=== PATIENT | female | born 1935 | race Caucasian/White ===

== ENCOUNTER 2023-06-05 13:54 | Observation (INO) | payer MEDICARE, OTHER, SELFPAY ==
[2023-06-05] VITALS (19 sets, daily range): BP systolic 139–190; BP diastolic 64–84; PULSE 52–86; RESP 16–35; TEMP 36.1–36.9; O2SAT 93–99; BMI 26.4
--- NOTE | 2023-06-05 14:34 | DI.RAD.S_ITS ---
PROCEDURE: XR CHEST 1V INDICATIONS: chest pain TECHNIQUE: One view of the chest was acquired. COMPARISON: [facility], CT, CT KIDNEY URETER BLADDER (KUB), 01/10/2023, 11:20. [facility], CR, XR CHEST 2V, 04/16/2022, 16:05. suggesting [facility], CR, XR CHEST 1V, 12/02/2022, 21:13. FINDINGS: Surgical changes and devices: None. Lungs and pleura: Reticular opacities at the bilateral lung bases suggest mild underlying fibrotic change. There is blunting at the left costophrenic sulcus, as before suggesting small effusion or pleural scar. No new airspace opacities. Mediastinum: Mediastinal contours appear normal. Heart size is large, as before. Bones and chest wall: No suspicious bony lesions. Overlying soft tissues appear unremarkable. IMPRESSION: 1. Questionable left effusion versus pleural scar. 2. No new acute airspace opacities. Dictated by: Joie Sánchez M.D. on 06/05/2023 at 15:13 Approved by: Joie Sánchez M.D. on 06/05/2023 at 15:16
[2023-06-05 14:43] LABS: Add Manual Diff / Slide Review NO; Basophils Absolute Auto 100 /uL (0-100); Basophils Percent Auto 1.2 % (0-2); Eosinophils Absolute Auto 600 /uL (0-450); Eosinophils Percent Auto 5.3 % (2-4); Hemoglobin 12.1 g/dL (12.0-16.0); Lymphocytes Absolute Auto 3900 /uL (1100-4500); Lymphocytes Percent Auto 37.4 % (25-40); Mean Corpuscular HGB Conc 33.6 % (30-36); Mean Corpuscular Hemoglobin 31.9 PG (26-34); Monocytes Absolute Auto 900 /uL (0-900); Monocytes Percent Auto 8.7 % (3-14); Neutrophils Absolute Auto 5000 /uL (1500-7000); Neutrophils Percent Auto 47.4 % (50-75); Platelet Count 310 X10^3/uL (150-400); Red Blood Cell Count 3.79 X10^6/uL (4.0-5.2); Red Cell Distribution Width 13.8 % (11.6-14.8); White Blood Cell Count 10.4 X10^3/uL (4.5-11.0)
[2023-06-05 14:50] LABS: INR 1.2 (0.9-1.3); Prothrombin Time 14.3 SECONDS (9.4-12.5)
[2023-06-05 14:52] LABS: Alanine Aminotransferase 17 IU/L (<35); Albumin 4.3 g/dL (3.5-5.0); Albumin Globulin Ratio 1.2 (1.0-2.8); Alkaline Phosphatase 64 U/L (38-126); Aspartate Aminotransferase 27 IU/L (14-36); BUN Creatinine Ratio 17.7 (6-22); Bilirubin Total 0.4 mg/dL (0.2-1.3); Blood Urea Nitrogen 11 mg/dL (7-17); Calcium 9.5 mg/dL (8.4-10.2); Carbon Dioxide 27 mmol/L (22-32); Chloride 103 mmol/L (98-107); Creatine Kinase 39 U/L (30-135); Estimated Glomerular Filt Rate > 60 mL/min (>60); Globulin 3.5 g/dL (1.7-4.1); Glucose 102 mg/dL (80-110); HEMOLYSIS < 15 (0-50); Lipase 26 U/L (23-300); Magnesium 1.9 mg/dL (1.6-2.3); PTT Partial Thromboplastin Tim 33 SECONDS (25.1-36.5); Sodium 138 mmol/L (137-145); Total Protein 7.8 g/dL (6.3-8.2)
[2023-06-05 15:04] LABS: Troponin I < 0.012 ng/mL (0.01-0.034)
--- NOTE | 2023-06-05 16:41 | ED_ITS ---
HPI - Syncope General Chief Complaint: Syncope Stated Complaint: light headed,possible passed out, dizzy Time Seen by Provider: 06/05/23 16:33 Source: patient Limitations: no limitations History of Present Illness HPI narrative: 87-year-old female with history of paroxysmal atrial fibrillation on Eliquis, recurrent UTI, ROGE, GERD, hypothyroidism. Patient presents with complaint of syncopal or near syncopal episode today. She was seated with friends. She felt a wave dizziness, she thinks that she passed out but states none of her friends noticed any change. She was seated during this episode did not fall out of her seat forward to the table. She states she thinks it may have been a few seconds at the most but did think that she plus some time. She states no one else are noticed anything when it happened. She states she felt a little lightheaded before she left this morning but had not had breakfast. This episode occurred after eating lunch. Patient states no headache, no fevers, no chills, no cold cough or congestion. No chest pain, no shortness of breath. She is felt fine since she has been here at the emergency department. No nausea or vomiting, no diaphoresis. She did not have any bowel or bladder incontinence. No dysuria, urgency or frequency. Patient states no new swelling in extremities. She is on Eliquis for atrial fibrillation, she is currently and a 60 day course of oral antibiotic for recurrent UTI. Note she would hysterectomy and age 34, has not had any other interventions no prior pacers, cardiac stents or abrasions. Allergic to doxycycline and sulfa. No tobacco, alcohol or illicit. She has not reestablished with Cardiology since moving from [place] a year and a half ago. She does have primary care with Dr. Connor. Related Data Home Medications Medication Instructions Recorded Confirmed brimonidine 0.2 %-timolol 0.5 % drp EYE-BOTH 03/06/22 05/21/23 eye drops (Combigan) gabapentin 300 mg capsule 300 mg PO DAILY 03/06/22 05/21/23 hyoscyamine sulfate 0.125 mg 0.25 mg sublingual BID 04/29/23 05/21/23 sublingual tablet levothyroxine 88 mcg tablet 88 mcg PO DAILY 04/29/23 05/21/23 (Synthroid) naloxone 4 mg/actuation nasal spray intranasal 04/29/23 05/21/23 spray (Narcan) oxybutynin chloride 5 mg 5 mg PO DAILY 04/29/23 05/21/23 tablet,extended release 24 hr Previous Rx's Medication Instructions Recorded Disabled parking permit #1 ea 10/09/22 omeprazole 20 mg capsule,delayed 20 mg PO DAILY #90 caps 11/21/22 release methenamine hippurate 1 gram 1 g PO BID #180 tabs 12/19/22 tablet (Hiprex) ospemifene 60 mg tablet (Osphena) 60 mg PO DAILY #90 tabs 12/28/22 estradiol 0.01% (0.1 mg/gram) 1 g vaginal 2XW #42.5 grams 01/30/23 vaginal cream (Estrace) alendronate 70 mg tablet 70 mg PO QWEEK #12 tabs 03/07/23 polyethylene glycol 3350 17 17 g PO BID PRN constip #3,060 03/07/23 gram/dose oral powder (Miralax) grams apixaban 5 mg tablet (Eliquis) 5 mg PO BID #60 tabs 03/11/23 simvastatin 20 mg tablet 20 mg PO DAILY #90 tabs 03/11/23 fluticasone propionate 110 1 puff inhalation BID PRN JUANITA #36 04/15/23 mcg/actuation HFA aerosol inhaler grams (Flovent HFA) albuterol sulfate 2.5 mg/3 mL 2.5 mg (3 mL) inhalation Q6H PRN 05/13/23 (0.083 %) solution for nebulization wheezing #75 mL cefdinir 300 mg capsule 300 mg PO BID #70 caps 05/21/23 Allergies Allergy/AdvReac Type Severity Reaction Status Date / Time doxycycline Allergy Intermediate Swelling Verified 04/29/23 10:55 of Lip/Tongue/Throat Sulfa (Sulfonamide Allergy Mild Hives Verified 04/29/23 10:55 Antibiotics) Review of Systems Review of Systems ROS Unobtainable: All systems reviewed & are unremarkable except as noted in HPI and below Patient History Medical History UTI (urinary tract infection) Chronic prescription opiate use History of recurrent UTI (urinary tract infection) History of recurrent UTI (urinary tract infection) Encounter for initial annual wellness visit (AWV) in Medicare patient Urge incontinence Lower urinary tract symptoms (LUTS) [place]-Walker grade 3 cystocele Postmenopausal atrophic vaginitis Gait instability Polymyalgia rheumatica (~1989) Sleep apnea (~2018) Migraines (~1969) Shoulder pain (~1994) Fracture (~2017) Partial blindness (~2005) Vaginal prolapse History of urinary incontinence (~2014) Fecal incontinence (~2019) GERD (gastroesophageal reflux disease) Osteoporosis (~2017) Fibromyalgia (~1994) Hypothyroidism Benign essential HTN Paroxysmal atrial fibrillation (~2015) Asthma (~2004) Surgical History Anesthesia History of cataract removal with insertion of prosthetic lens (~2005) History of hysterectomy (~1989) Family History Father History of heart disease Hyperlipidemia Mother History of heart disease Hypertension Stroke Brother History of heart disease Hypertension Sister History of heart disease Social History Smoking Status: Never smoker Smoking Status: Never smoker Substance Use Type: does not use Exam Narrative Exam Narrative: GENERAL: Alert and oriented x three, well-appearing elderly female in mild distress. HEENT: Head normocephalic, atraumatic, EOMI, pupils reactive, face symmetric, moist mucous membranes NECK: Supple, full range of motion CARDIOVASCULAR: Regular rate and rhythm without murmurs, rubs or gallops. No JVD. No swelling bilateral lower extremity. RESPIRATORY: Breath sounds equal bilaterally, no wheezes rales or rhonchi. No tachypnea or accessory muscle use ABDOMEN: Soft, nontender. Normoactive bowel sounds all 4 quadrants. No guarding or rebound, rigidity, no mass, no pulsatile mass or bruit. : No CVA tenderness EXTREMITIES: Normal range of motion, no clubbing or edema. Neurovascularly intact NEUROLOGICAL: Cranial nerves II through XII grossly intact. Moving all extremities SKIN: Warm, dry, no petechiae, no rashes or lesions. Initial Vital Signs Initial Vital Signs: Vital Signs Temperature 98.5 F 06/05/23 13:57 Pulse Rate 55 L 06/05/23 13:57 Respiratory Rate 18 06/05/23 13:57 Blood Pressure 152/69 H 06/05/23 13:57 Pulse Oximetry 96 06/05/23 13:57 Oxygen Delivery Method Room Air 06/05/23 13:57 Course Orders Ordered: ED Orders 06/05/23 14:24 EKG-12 Lead Stat 06/05/23 14:30 Complete Blood Count AUTO DIFF Stat Comprehensive Metabolic Panel Stat Lipase Stat Magnesium Stat PTT Partial Thromboplastin Jorge Luis Stat Prothrombin Time INR Stat Troponin & CK Cardiac Panel Stat 06/05/23 14:34 XR chest 1V Stat 06/05/23 17:05 BNP [NT-proBNP (BNP-Adult 18+)] Stat Trop I [Troponin I] Stat 06/05/23 17:09 EKG-12 Lead Stat Discontinued Medications Sodium Chloride (Normal Saline 0.9%) 1,000 mls @ 1,000 mls/hr IV BOLUS ONE Stop: 06/05/23 17:53 Last Admin: 06/05/23 17:15 Dose: 1,000 mls/hr Documented By: TANNA Vital Signs Vital signs: Vital Signs - 8 hr 06/05/23 13:57 06/05/23 14:18 06/05/23 14:30 Temperature 98.5 F Pulse Rate 55 L 56 L 52 L Pulse Rate [Orthostatic Lying] Pulse Rate [Orthostatic Sitting] Pulse Rate [Orthostatic Standing] Respiratory Rate 18 23 Blood Pressure 152/69 H Blood Pressure [Orthostatic Lying] Blood Pressure [Orthostatic Sitting] Blood Pressure [Orthostatic Standing] Pulse Oximetry 96 97 99 Oxygen Delivery Method Room Air Room Air 06/05/23 14:30 06/05/23 15:00 06/05/23 15:00 Temperature Pulse Rate 75 Pulse Rate [Orthostatic Lying] Pulse Rate [Orthostatic Sitting] Pulse Rate [Orthostatic Standing] Respiratory Rate 23 Blood Pressure 139/64 158/75 H Blood Pressure [Orthostatic Lying] Blood Pressure [Orthostatic Sitting] Blood Pressure [Orthostatic Standing] Pulse Oximetry 97 Oxygen Delivery Method Room Air 06/05/23 15:30 06/05/23 15:30 06/05/23 16:00 Temperature Pulse Rate 80 Pulse Rate [Orthostatic Lying] Pulse Rate [Orthostatic Sitting] Pulse Rate [Orthostatic Standing] Respiratory Rate 20 Blood Pressure 157/69 H 161/73 H Blood Pressure [Orthostatic Lying] Blood Pressure [Orthostatic Sitting] Blood Pressure [Orthostatic Standing] Pulse Oximetry 96 Oxygen Delivery Method 06/05/23 16:00 06/05/23 16:30 06/05/23 16:31 Temperature Pulse Rate 78 80 79 Pulse Rate [Orthostatic Lying] Pulse Rate [Orthostatic Sitting] Pulse Rate [Orthostatic Standing] Respiratory Rate 18 23 24 Blood Pressure Blood Pressure [Orthostatic Lying] Blood Pressure [Orthostatic Sitting] Blood Pressure [Orthostatic Standing] Pulse Oximetry 95 97 98 Oxygen Delivery Method Room Air 06/05/23 16:31 06/05/23 16:59 06/05/23 16:59 Temperature Pulse Rate 81 Pulse Rate [Orthostatic Lying] Pulse Rate [Orthostatic Sitting] Pulse Rate [Orthostatic Standing] Respiratory Rate 28 H Blood Pressure 182/79 H 189/83 H Blood Pressure [Orthostatic Lying] Blood Pressure [Orthostatic Sitting] Blood Pressure [Orthostatic Standing] Pulse Oximetry 96 Oxygen Delivery Method 06/05/23 17:00 06/05/23 17:01 06/05/23 17:01 Temperature Pulse Rate 85 82 Pulse Rate [Orthostatic Lying] Pulse Rate [Orthostatic Sitting] Pulse Rate [Orthostatic Standing] Respiratory Rate 35 H 21 Blood Pressure 178/84 H Blood Pressure [Orthostatic Lying] Blood Pressure [Orthostatic Sitting] Blood Pressure [Orthostatic Standing] Pulse Oximetry 95 Oxygen Delivery Method Room Air 06/05/23 17:02 06/05/23 17:02 06/05/23 17:05 Temperature Pulse Rate 83 Pulse Rate [Orthostatic Lying] 82 Pulse Rate [Orthostatic Sitting] 85 Pulse Rate [Orthostatic Standing] 86 Respiratory Rate 29 H Blood Pressure 190/84 H Blood Pressure [Orthostatic Lying] 189/83 H Blood Pressure [Orthostatic Sitting] 178/84 H Blood Pressure [Orthostatic Standing] 190/84 H Pulse Oximetry Oxygen Delivery Method 06/05/23 17:30 06/05/23 17:30 Temperature Pulse Rate 82 Pulse Rate [Orthostatic Lying] Pulse Rate [Orthostatic Sitting] Pulse Rate [Orthostatic Standing] Respiratory Rate 20 Blood Pressure 169/77 H Blood Pressure [Orthostatic Lying] Blood Pressure [Orthostatic Sitting] Blood Pressure [Orthostatic Standing] Pulse Oximetry 96 Oxygen Delivery Method Room Air MDM - Syncope Lab Data 06/05/23 14:30 06/05/23 14:30 Labs: Lab Results 06/05/23 06/05/23 Range/Units 14:30 17:05 WBC 10.4 (4.5-11.0) X10^3/uL RBC 3.79 L (4.0-5.2) X10^6/uL Hgb 12.1 (12.0-16.0) g/dL Hct 36.0 (36-46) % MCV 95.0 (80-100) fL MCH 31.9 (26-34) PG MCHC 33.6 (30-36) % RDW 13.8 (11.6-14.8) % Plt Count 310 (150-400) X10^3/uL Neut % (Auto) 47.4 L (50-75) % Lymph % (Auto) 37.4 (25-40) % [place] % (Auto) 8.7 (3-14) % Eos % (Auto) 5.3 H (2-4) % Baso % (Auto) 1.2 (0-2) % Neut # (Auto) 5000 (1171-2936) /uL Lymph # (Auto) 3900 (8691-9763) /uL Dodge # (Auto) 900 (0-900) /uL Eos # (Auto) 600 H (0-450) /uL Baso # (Auto) 100 (0-100) /uL PT 14.3 H (9.4-12.5) SECONDS INR 1.2 (0.9-1.3) APTT 33 (25.1-36.5) SECONDS Sodium 138 (137-145) mmol/L Potassium 4.0 (3.4-5.1) mmol/L Chloride 103 (98-107) mmol/L Carbon Dioxide 27 (22-32) mmol/L BUN 11 (7-17) mg/dL Creatinine 0.62 (0.52-1.04) mg/dL Estimated GFR > 60 (>60) mL/min BUN/Creatinine Ratio 17.7 (6-22) Glucose 102 (80-110) mg/dL Calcium 9.5 (8.4-10.2) mg/dL Magnesium 1.9 (1.6-2.3) mg/dL Total Bilirubin 0.4 (0.2-1.3) mg/dL AST 27 (14-36) IU/L ALT 17 (<35) IU/L Alkaline Phosphatase 64 (38-126) U/L Total Creatine Kinase 39 (30-135) U/L Troponin I < 0.012 < 0.012 (0.01-0.034) ng/mL NT-Pro-B Natriuret Pep 2110 H (<450) pg/mL Total Protein 7.8 (6.3-8.2) g/dL Albumin 4.3 (3.5-5.0) g/dL Globulin 3.5 (1.7-4.1) g/dL Albumin/Globulin Ratio 1.2 (1.0-2.8) Lipase 26 (23-300) U/L Urine Dip Bedside Urine Glucose Negative Bedside Urine Bilirubin - Negative Bedside Urine Ketone - Negative Urine Specific [place] 1.015 Bedside Urine Occult Blood - Negative Bedside Urine pH 6.5 Bedside Urine Protein - Negative Bedside Urine Urobilinogen - Negative Bedside Urine Nitrite - Negative Bedside Urine Leukocytes - Negative Esterase Imaging Data Chest x-ray: Radiologist's Impression: [address] [address] XRay Report Signed Patient: Natalie Singh MR#: [id number] : 1935 Acct:[id number] Age/Sex: 87 / F Date of Service: 06/05/23 Loc: ED Accession Number: [id number] Procedure: XR chest 1V Ordering Provider: Paulina Barcenas D.O. PROCEDURE: XR CHEST 1V INDICATIONS: chest pain TECHNIQUE: One view of the chest was acquired. COMPARISON: [facility], CT, CT KIDNEY URETER BLADDER (KUB), 01/10/2023, 11:20. [facility], CR, XR CHEST 2V, 04/16/2022, 16:05. suggesting [facility], CR, XR CHEST 1V, 12/02/2022, 21:13. FINDINGS: Surgical changes and devices: None. Lungs and pleura: Reticular opacities at the bilateral lung bases suggest mild underlying fibrotic change. There is blunting at the left costophrenic sulcus, as before suggesting small effusion or pleural scar. No new airspace opacities. Mediastinum: Mediastinal contours appear normal. Heart size is large, as before. Bones and chest wall: No suspicious bony lesions. Overlying soft tissues appear unremarkable. IMPRESSION: 1. Questionable left effusion versus pleural scar. 2. No new acute airspace opacities. Dictated by: Joie Sánchez M.D. on 06/05/2023 at 15:13 Approved by: Joie Sánchez M.D. on 06/05/2023 at 15:16 ECG Data Attestation: I personally reviewed and interpreted this ECG as follows: Prior ECG tracings: available for review Interpretation: Sinus bradycardia rate of 55 VA 142, QRS of 106 QTC of 463. No acute ST elevation patient's T-waves appear inverted in lead 3, do not appreciate consistent changes throughout AVF appears present lead 2. Patient appears to have some flattened T-wave/depression in V4 5. Patient has prior from 12/02/2022 these changes do appear to be new. MDM Narrative Medical decision making narrative: Pleasant 87-year-old female who describes very brief near syncopal or syncopal episode but no loss of tone, no changes consistent with seizure activity. No one around her noticed any change. Patient states she is felt normal since then but has been resting comfortably in the room. She is hypertensive here in the department but otherwise appropriate vitals. Hemoglobin is 12, hematocrit was 36, hemoglobin is 10.4 with platelets of 310. INR is 1.2 renal function electrolytes are appropriate with a creatinine 0.62, glucose of 102, sodium 138 and potassium of 4, LFTs are negative troponins negative. Chest x-ray shows questionable left effusion versus pleural scar no new acute changes. EKG showed new change from November of 2022, patient does not have any chest pain, no shortness of breath no diaphoresis or other changes consistent with a cardiac equivalent did have this episode while seated. Troponin is negative. BNP is 2110. Repeat EKG shows normalization to prior on 12/02/2022 with resolution of T-wave inversion in 2 and 3 Patient is appropriately anticoagulated on Eliquis so held off on D-dimer or CTA. Negative orthostatics, felt dizzy, given 1 L NS. She felt improved on ambulation to bathroom after 500mL. Discussed with Dr. Duarte, would like to keep for observation to likely near syncopal episode although patient has been more hypertensive, no other acute neurologic changes no seizure-like activity appreciated but did not has EKG change. Plan for repeat trope echo and further workup as needed Dr. Duarte kindly accepts. Discharge Plan Departure Patient Disposition: Admitted as Observation Clinical Impression: Near syncope, ST segment changes on electrocardiogram Admit Date/Time: 06/05/23 18:07
[2023-06-05] MEDS: SODIUM CHLORIDE 0.9% 1,000 ML 1000 ML IV (17:15)
[2023-06-05 17:34] LABS: NT-proBNP (BNP-Adult 18+) 2110 pg/mL (<450)
[2023-06-05 17:37] LABS: Troponin I < 0.012 ng/mL (0.01-0.034)
--- NOTE | 2023-06-05 21:07 | DI.CT.S_ITS ---
PROCEDURE: CT HEAD/BRAIN WO CON INDICATIONS: syncope TECHNIQUE: Noncontrast 4.5 mm thick angled axial sections acquired from the foramen magnum to the vertex, with coronal and sagittal reformats. For radiation dose reduction, the following was used: automated exposure control, adjustment of mA and/or kV according to patient size. COMPARISON: [facility], CT, CT HEAD/BRAIN WO CON, 12/02/2022, 22:01. FINDINGS: Image quality: Diagnostic CSF spaces: Basal cisterns are patent. Lateral ventricles are symmetric. Volume: Vascular calcifications. Periventricular white matter disease is commonly seen with chronic microangiopathy. Volume loss is present. These findings are [id number] Brain: No intracranial hemorrhage. Flynn-white differentiation is grossly maintained. Craniofacial structures: No significant opacification of the paranasal sinuses. IMPRESSION: No acute intracranial abnormality. If there is high concern for parenchymal pathology, consider further evaluation with MRI. Dictated by: Dung Talbert M.D. on 06/05/2023 at 22:02 Approved by: Dung Talbert M.D. on 06/05/2023 at 22:04
--- NOTE | 2023-06-05 21:14 | P.HP_ITS ---
History of Present Illness History of Present Illness Chief complaint: light headed,possible passed out, dizzy Narrative: 87 years old female with a past medical history of hypertension, paroxysmal atrial fibrillation, urinary tract infection recurrent, obstructive sleep apnea, GERD, hypothyroidism and multiple other medical issues presented to the emergency room for near syncope/syncopal events. She was with her friends and felt a wave of dizziness and thought she may have passed out but did not fall out of her seat. It may have been brief for a few seconds. Denies any headache blurred vision diplopia or any focal neurodeficits per denies any chest pain or shortness of breath. Did feel lightheaded earlier in the morning and had skipped breakfast. Denies any cough wheezing shortness of breath or upper respiratory symptoms. Denies any bowel movement or bladder issues. In the ED, was noted to be bradycardic with a heart rate in the 50s. Labs were fairly unremarkable except for BNP at 2110. Urine analysis is negative for leukocyte esterase and nitrites. Chest x-ray shows possible effusion versus pleural scar on the left side. EKG shows a sinus bradycardia with the T wave inversion in V4?V5. Patient was admitted for further evaluation [facility] Medical History UTI (urinary tract infection) Chronic prescription opiate use History of recurrent UTI (urinary tract infection) History of recurrent UTI (urinary tract infection) Encounter for initial annual wellness visit (AWV) in Medicare patient Urge incontinence Lower urinary tract symptoms (LUTS) [place]-Walker grade 3 cystocele Postmenopausal atrophic vaginitis Gait instability Polymyalgia rheumatica (~1989) Sleep apnea (~2018) Migraines (~1969) Shoulder pain (~1994) Fracture (~2017) Partial blindness (~2005) Vaginal prolapse History of urinary incontinence (~2014) Fecal incontinence (~2019) GERD (gastroesophageal reflux disease) Osteoporosis (~2017) Fibromyalgia (~1994) Hypothyroidism Benign essential HTN Paroxysmal atrial fibrillation (~2015) Asthma (~2005) Surgical History Anesthesia History of cataract removal with insertion of prosthetic lens (~2005) History of hysterectomy (~1989) Family History Father History of heart disease Hyperlipidemia Mother History of heart disease Hypertension Stroke Brother History of heart disease Hypertension Sister History of heart disease Social History household members: significant other Smoking Status: Never smoker Meds Home Medications and Allergies Home Medications Medication Instructions Recorded Confirmed Type brimonidine 0.2 %-timolol 0.5 % 1 drp EYE-BOTH BID 03/06/22 06/05/23 History eye drops (Combigan) gabapentin 300 mg capsule 300 mg PO DAILY 03/06/22 06/05/23 History Disabled parking permit #1 ea 10/09/22 04/29/23 Rx omeprazole 20 mg capsule,delayed 20 mg PO DAILY #90 caps 11/21/22 06/05/23 Rx release estradiol 0.01% (0.1 mg/gram) 1 g vaginal 2XW #42.5 grams 01/30/23 06/05/23 Rx vaginal cream (Estrace) alendronate 70 mg tablet 70 mg PO QWEEK #12 tabs 03/07/23 06/05/23 Rx polyethylene glycol 3350 17 17 g PO BID PRN constip #3,060 03/07/23 06/05/23 Rx gram/dose oral powder (Miralax) grams apixaban 5 mg tablet (Eliquis) 5 mg PO BID #60 tabs 03/11/23 06/05/23 Rx simvastatin 20 mg tablet 20 mg PO DAILY #90 tabs 03/11/23 06/05/23 Rx fluticasone propionate 110 1 puff inhalation BID PRN JUANITA #36 04/15/23 06/05/23 Rx mcg/actuation HFA aerosol inhaler grams (Flovent HFA) hyoscyamine sulfate 0.125 mg 0.25 mg sublingual BID 04/29/23 06/05/23 History sublingual tablet levothyroxine 88 mcg tablet 88 mcg PO DAILY 04/29/23 06/05/23 History (Synthroid) naloxone 4 mg/actuation nasal 1 spray intranasal NOW 04/29/23 06/05/23 History spray (Narcan) oxybutynin chloride 5 mg 5 mg PO DAILY 04/29/23 06/05/23 History tablet,extended release 24 hr albuterol sulfate 2.5 mg/3 mL 2.5 mg (3 mL) inhalation Q6H PRN 05/13/23 06/05/23 Rx (0.083 %) solution for nebulization wheezing #75 mL cefdinir 300 mg capsule 300 mg PO BID #70 caps 05/21/23 06/05/23 Rx hydrocodone 5 mg-acetaminophen 325 1 tab PO Q8H PRN cough 06/05/23 06/05/23 History mg tablet Allergies Allergy/AdvReac Type Severity Reaction Status Date / Time doxycycline Allergy Intermediate Swelling Verified 04/29/23 10:55 of Lip/Tongue/Throat Sulfa (Sulfonamide Allergy Mild Hives Verified 04/29/23 10:55 Antibiotics) Review of Systems Review of Systems Narrative: 12 point review of systems negative unless otherwise stated in the history of present illness Exam Vital Signs (past 8 hours): - 06/05/23 13:57 06/05/23 14:18 06/05/23 14:30 Temperature 98.5 F Pulse Rate 55 L 56 L 52 L Pulse Rate [Orthostatic Lying] Pulse Rate [Orthostatic Sitting] Pulse Rate [Orthostatic Standing] Respiratory Rate 18 23 Blood Pressure 152/69 H Blood Pressure [Orthostatic Lying] Blood Pressure [Orthostatic Sitting] Blood Pressure [Orthostatic Standing] Pulse Oximetry 96 97 99 Oxygen Delivery Method Room Air Room Air Oxygen Flow Rate 06/05/23 14:30 06/05/23 15:00 06/05/23 15:00 Temperature Pulse Rate 75 Pulse Rate [Orthostatic Lying] Pulse Rate [Orthostatic Sitting] Pulse Rate [Orthostatic Standing] Respiratory Rate 23 Blood Pressure 139/64 158/75 H Blood Pressure [Orthostatic Lying] Blood Pressure [Orthostatic Sitting] Blood Pressure [Orthostatic Standing] Pulse Oximetry 97 Oxygen Delivery Method Room Air Oxygen Flow Rate 06/05/23 15:30 06/05/23 15:30 06/05/23 16:00 Temperature Pulse Rate 80 Pulse Rate [Orthostatic Lying] Pulse Rate [Orthostatic Sitting] Pulse Rate [Orthostatic Standing] Respiratory Rate 20 Blood Pressure 157/69 H 161/73 H Blood Pressure [Orthostatic Lying] Blood Pressure [Orthostatic Sitting] Blood Pressure [Orthostatic Standing] Pulse Oximetry 96 Oxygen Delivery Method Oxygen Flow Rate 06/05/23 16:00 06/05/23 16:30 06/05/23 16:31 Temperature Pulse Rate 78 80 79 Pulse Rate [Orthostatic Lying] Pulse Rate [Orthostatic Sitting] Pulse Rate [Orthostatic Standing] Respiratory Rate 18 23 24 Blood Pressure Blood Pressure [Orthostatic Lying] Blood Pressure [Orthostatic Sitting] Blood Pressure [Orthostatic Standing] Pulse Oximetry 95 97 98 Oxygen Delivery Method Room Air Oxygen Flow Rate 06/05/23 16:31 06/05/23 16:59 06/05/23 16:59 Temperature Pulse Rate 81 Pulse Rate [Orthostatic Lying] Pulse Rate [Orthostatic Sitting] Pulse Rate [Orthostatic Standing] Respiratory Rate 28 H Blood Pressure 182/79 H 189/83 H Blood Pressure [Orthostatic Lying] Blood Pressure [Orthostatic Sitting] Blood Pressure [Orthostatic Standing] Pulse Oximetry 96 Oxygen Delivery Method Oxygen Flow Rate 06/05/23 17:00 06/05/23 17:01 06/05/23 17:01 Temperature Pulse Rate 85 82 Pulse Rate [Orthostatic Lying] Pulse Rate [Orthostatic Sitting] Pulse Rate [Orthostatic Standing] Respiratory Rate 35 H 21 Blood Pressure 178/84 H Blood Pressure [Orthostatic Lying] Blood Pressure [Orthostatic Sitting] Blood Pressure [Orthostatic Standing] Pulse Oximetry 95 Oxygen Delivery Method Room Air Oxygen Flow Rate 06/05/23 17:02 06/05/23 17:02 06/05/23 17:05 Temperature Pulse Rate 83 Pulse Rate [Orthostatic Lying] 82 Pulse Rate [Orthostatic Sitting] 85 Pulse Rate [Orthostatic Standing] 86 Respiratory Rate 29 H Blood Pressure 190/84 H Blood Pressure [Orthostatic Lying] 189/83 H Blood Pressure [Orthostatic Sitting] 178/84 H Blood Pressure [Orthostatic Standing] 190/84 H Pulse Oximetry Oxygen Delivery Method Oxygen Flow Rate 06/05/23 17:30 06/05/23 17:30 06/05/23 18:00 Temperature Pulse Rate 82 Pulse Rate [Orthostatic Lying] Pulse Rate [Orthostatic Sitting] Pulse Rate [Orthostatic Standing] Respiratory Rate 20 Blood Pressure 169/77 H 187/84 H Blood Pressure [Orthostatic Lying] Blood Pressure [Orthostatic Sitting] Blood Pressure [Orthostatic Standing] Pulse Oximetry 96 Oxygen Delivery Method Room Air Oxygen Flow Rate 06/05/23 18:00 06/05/23 18:30 06/05/23 18:30 Temperature Pulse Rate 83 81 Pulse Rate [Orthostatic Lying] Pulse Rate [Orthostatic Sitting] Pulse Rate [Orthostatic Standing] Respiratory Rate 24 23 Blood Pressure 161/68 H Blood Pressure [Orthostatic Lying] Blood Pressure [Orthostatic Sitting] Blood Pressure [Orthostatic Standing] Pulse Oximetry 98 93 Oxygen Delivery Method Oxygen Flow Rate 06/05/23 19:04 06/05/23 20:00 06/05/23 20:56 Temperature 96.9 F L 96.9 F L 96.9 F L Pulse Rate 83 83 83 Pulse Rate [Orthostatic Lying] Pulse Rate [Orthostatic Sitting] Pulse Rate [Orthostatic Standing] Respiratory Rate 20 16 16 Blood Pressure 163/66 H 163/66 H 163/66 H Blood Pressure [Orthostatic Lying] Blood Pressure [Orthostatic Sitting] Blood Pressure [Orthostatic Standing] Pulse Oximetry 97 97 97 Oxygen Delivery Method Oxygen Flow Rate 0 0 Oxygen Delivery Method Room Air Oxygen Flow Rate 0 Narrative Exam Narrative: Evaluated with the help of video communication device Patient is awake alert and able to give a good history. No acute distress. No JVD noted Objective Labs 06/05/23 14:30 06/05/23 14:30 Labs: Laboratory Results - last 24 hr 06/05/23 06/05/23 14:30 17:05 WBC 10.4 RBC 3.79 L Hgb 12.1 Hct 36.0 MCV 95.0 MCH 31.9 MCHC 33.6 RDW 13.8 Plt Count 310 Neut % (Auto) 47.4 L Lymph % (Auto) 37.4 [place] % (Auto) 8.7 Eos % (Auto) 5.3 H Baso % (Auto) 1.2 Neut # (Auto) 5000 Lymph # (Auto) 3900 [place] # (Auto) 900 Eos # (Auto) 600 H Baso # (Auto) 100 PT 14.3 H INR 1.2 APTT 33 Sodium 138 Potassium 4.0 Chloride 103 Carbon Dioxide 27 BUN 11 Creatinine 0.62 Estimated GFR > 60 BUN/Creatinine Ratio 17.7 Glucose 102 Calcium 9.5 Magnesium 1.9 Total Bilirubin 0.4 AST 27 ALT 17 Alkaline Phosphatase 64 Total Creatine Kinase 39 Troponin I < 0.012 < 0.012 NT-Pro-B Natriuret Pep 2110 H Total Protein 7.8 Albumin 4.3 Globulin 3.5 Albumin/Globulin Ratio 1.2 Lipase 26 Assessment & Plan Assessment & Plan narrative: 87 years old female with a past medical history of hypertension, paroxysmal atrial fibrillation, urinary tract infection recurrent, obstructive sleep apnea, GERD, hypothyroidism and multiple other medical issues presented to the emergency room for near syncope/syncopal events. She was with her friends and felt a wave of dizziness and thought she may have passed out but did not fall out of her seat. It may have been brief for a few seconds. Denies any headache blurred vision diplopia or any focal neurodeficits per denies any chest pain or shortness of breath. Did feel lightheaded earlier in the morning and had skipped breakfast. Denies any cough wheezing shortness of breath or upper respiratory symptoms. Denies any bowel movement or bladder issues. In the ED, was noted to be bradycardic with a heart rate in the 50s. Labs were fairly unremarkable except for BNP at 2110. Urine analysis is negative for leukocyte esterase and nitrites. Chest x-ray shows possible effusion versus pleural scar on the left side. EKG shows a sinus bradycardia with the T wave inversion in V4?V5. Patient was admitted for further evaluation 1. Syncope/near syncope in a patient with a history of atrial fibrillation/cardiac arrhythmia. Monitoring telemetry and follow-up with an echocardiogram/follow-up with a CT brain without contrast. Watch for any cardiac arrhythmias that could contribute. Monitor for any orthostatic blood pressures and reversible factors including any electrolyte imbalance/infections. Did receive 1 L normal saline bolus in the emergency room and was not orthostatic. Hold off on further IV fluids given the elevated BNP with concerns for cardiomyopathy 2. Paroxysmal atrial fibrillation. Currently rate controlled and on anticoagulation with Eliquis 3. Polymyalgia rheumatica/fibromyalgia chronic pain resume the home medications 4. Muscle spasm resume the home medications including muscle relaxers 5. DVT prophylaxis will be with Eliquis 6. Urinary tract infection chronic and currently on chronic suppressive antibiotics Goals of care reviewed with the patient and she has requested full code. Patient will be admitted under observation status Patient was evaluated with the help of a video communication device. Location of the provider is [facility] Time Spent With Patient Time with patient: less than 30 minutes
[2023-06-05] MEDS: TIMOLOL 0.5% OPHTH 1 DROPS EYE-BOTH (22:07)
[2023-06-05] MEDS: TEMAZEPAM 15 MG CAPSULE 7.5 MG PO (22:08)
[2023-06-05] MEDS: ACETAMINOPHEN 325 MG TABLET 650 MG PO (22:08)
[2023-06-05] MEDS: OXYCODONE IR 5 MG TABLET PO (22:09)
[2023-06-06 00:56] VITALS: BP 124/61; PULSE 65; RESP 16; TEMP 37; O2SAT 96
[2023-06-06 04:00] VITALS: BP 168/62; PULSE 16; RESP 16; TEMP 36.2; O2SAT 96
[2023-06-06 06:13] LABS: Add Manual Diff / Slide Review NO; Basophils Absolute Auto 100 /uL (0-100); Basophils Percent Auto 1.1 % (0-2); Eosinophils Absolute Auto 400 /uL (0-450); Eosinophils Percent Auto 5.3 % (2-4); Hematocrit 33.4 % (36-46); Hemoglobin 11.2 g/dL (12.0-16.0); Lymphocytes Absolute Auto 3400 /uL (1100-4500); Mean Corpuscular HGB Conc 33.6 % (30-36); Mean Corpuscular Hemoglobin 31.8 PG (26-34); Mean Corpuscular Volume 94.7 fL (80-100); Monocytes Absolute Auto 800 /uL (0-900); Neutrophils Absolute Auto 3700 /uL (1500-7000); Neutrophils Percent Auto 43.6 % (50-75); Platelet Count 243 X10^3/uL (150-400); Red Blood Cell Count 3.53 X10^6/uL (4.0-5.2); Red Cell Distribution Width 13.9 % (11.6-14.8); White Blood Cell Count 8.4 X10^3/uL (4.5-11.0)
[2023-06-06 06:38] LABS: Alanine Aminotransferase 15 IU/L (<35); Albumin 3.7 g/dL (3.5-5.0); Albumin Globulin Ratio 1.2 (1.0-2.8); Alkaline Phosphatase 53 U/L (38-126); Aspartate Aminotransferase 27 IU/L (14-36); BUN Creatinine Ratio 19.6 (6-22); Bilirubin Total 0.5 mg/dL (0.2-1.3); Blood Urea Nitrogen 10 mg/dL (7-17); Calcium 8.9 mg/dL (8.4-10.2); Carbon Dioxide 28 mmol/L (22-32); Chloride 105 mmol/L (98-107); Estimated Glomerular Filt Rate > 60 mL/min (>60); Globulin 3.2 g/dL (1.7-4.1); Glucose 86 mg/dL (80-110); HEMOLYSIS < 15 (0-50); Magnesium 1.9 mg/dL (1.6-2.3); Potassium 3.5 mmol/L (3.4-5.1); Sodium 138 mmol/L (137-145); Total Protein 6.9 g/dL (6.3-8.2)
[2023-06-06 06:46] LABS: NT-proBNP (BNP-Adult 18+) 2630 pg/mL (<450)
[2023-06-06] MEDS: PANTOPRAZOLE DR 20 MG TABLET PO (07:07)
[2023-06-06 07:58] LABS: TSH w/ Reflex to FT4 0.64 uIU/mL (0.47-4.68)
[2023-06-06 08:00] VITALS: BP 166/67; PULSE 61; RESP 16; TEMP 36.3; O2SAT 96
[2023-06-06] MEDS: APIXABAN 5 MG TABLET PO (08:30)
[2023-06-06] MEDS: LEVOTHYROXINE 88 MCG TABLET PO (08:30)
[2023-06-06] MEDS: GABAPENTIN 300 MG CAPSULE PO (08:31)
[2023-06-06] MEDS: OXYCODONE IR 5 MG TABLET PO ×2 (08:31→15:48)
[2023-06-06] MEDS: POTASSIUM CHLORIDE 20 MEQ TAB 40 MEQ PO (10:20)
--- NOTE | 2023-06-06 11:01 | PC.NURSE ---
Informed pt at 10:30 AM that she'll be getting an echo. Echo is currently in the pt's room. Pt denies any dizziness, weakness, loss of time and/or memory.
[2023-06-06 12:00] VITALS: BP 156/60; PULSE 63; RESP 16; TEMP 36.7; O2SAT 95
--- NOTE | 2023-06-06 14:48 | CM.DANOTE ---
Initial DCP Assessment Note Pt is a 87 yo female, resident of [place], presents after near syncopal/syncopal event. According to conversation in multidisciplinary rounds, echo has been ordered and patient is likely to discharge home after, depending on findings. PCP: Wilmar Connor Payer: [facility] Reviewed chart, met w/patient and her SO Dung, introduced self and role. Patient lives w/SO, patient independent in all aspects. Patient anticipates returning home w/Dung to assist as needed, denies needs from this [employer]. No barriers identified at this time to patient's safe discharge home w/family to assist; close outpatient f/u recommended. CM team will plan to follow closely in case any DC needs or concerns arise. CLAUDETTE Chambers Discharge Planning/Care Management Advanced directive, confirm from FAMILY Start: 06/05/23 19:35 Freq: Q24H Status: Active Protocol: Document 06/06/23 10:40 MS (Rec: 06/06/23 10:40 MS [id number]) Advance Directive, confirm on record Time 10:40 Person contacted Natalie Copy received No CM Discharge Assessment Start: 06/06/23 14:44 Freq: Status: Active Protocol: Document 06/06/23 14:44 JODI (Rec: 06/06/23 14:48 [id number]) Discharge Planning Assessment Assigned Advertising Editor CLAUDETTE Rodriguez DPOA/Assigned Designee Name Dung Byrne DEMETRIS Contact Information [phone] Advance Directives? Yes: POLST on file Advance Directives on File No History Provided By Patient,Significant Other Prior Living Arrangements House Household Members significant other Type of transportation used prior to Drives own vehicle admit Independent with ADL's Yes: SO assists as needed Is patient alert and oriented? Yes Needs Assistance With Home Chores / Shopping Barriers to Discharge No Discharge Plan Home Transportation Arrangement SO Dung
--- NOTE | 2023-06-06 15:26 | P.DS_ITS ---
History of Present Illness History of Present Illness Chief complaint: light headed,possible passed out, dizzy Narrative: 87 years old female with a past medical history of hypertension, paroxysmal atrial fibrillation, urinary tract infection recurrent, obstructive sleep apnea, GERD, hypothyroidism and multiple other medical issues presented to the emergency room for near syncope/syncopal events. She was with her friends and felt a wave of dizziness and thought she may have passed out but did not fall out of her seat. It may have been brief for a few seconds. Denies any headache blurred vision diplopia or any focal neurodeficits per denies any chest pain or shortness of breath. Did feel lightheaded earlier in the morning and had skipped breakfast. Denies any cough wheezing shortness of breath or upper respiratory symptoms. Denies any bowel movement or bladder issues. In the ED, was noted to be bradycardic with a heart rate in the 50s. Labs were fairly unremarkable except for BNP at 2110. Urine analysis is negative for leukocyte esterase and nitrites. Chest x-ray shows possible effusion versus pleural scar on the left side. EKG shows a sinus bradycardia with the T wave inversion in V4?V5. Patient was admitted for further evaluation Discharge Providers Provider Date of admission: 06/05/23 18:07 Discharge Date: 06/06/23 Primary care physician: Wilmar Connor DO Discharge provider: Jimenez Duarte DO Summary Hospital Course Discharge Diagnosis: 1. Syncope/near syncope in a patient with a history of atrial fibrillation/cardiac arrhythmia. Monitoring telemetry and follow-up with an echocardiogram/follow-up with a CT brain without contrast. Watch for any cardiac arrhythmias that could contribute. Monitor for any orthostatic blood pressures and reversible factors including any electrolyte imbalance/infections. Did receive 1 L normal saline bolus in the emergency room and was not orthostatic. -echo with EF 55-60%, mild-mod MR, mod AR and mod-severe TR, with RVSP 64 indicating pulm HTN -patient to discuss pulm HTN with PCP, but she denies significant SOB -CT head negative -trops negative 2. Paroxysmal atrial fibrillation. Currently rate controlled and on anticoagulation with Eliquis 3. Polymyalgia rheumatica/fibromyalgia chronic pain resume the home medications 4. Muscle spasm resume the home medications including muscle relaxers 5. DVT prophylaxis will be with Eliquis 6. Urinary tract infection chronic and currently on chronic suppressive antibiotics Hospital Course: Admitted for presyncope. All workup reassuring and patient remained stable overnight. Echo only showed pulm HTN and mod-severe TR. Trops negative, CT head negative and no events on tele. Orthostatics negative. She will discuss her pulm HTN with her PCP and whether to see cardiology about it or not given her age and lack of symptoms. Exam Vital Signs (past 8 hours): - 06/06/23 08:00 06/06/23 12:00 Temperature 97.3 F L 98.1 F Pulse Rate 61 63 Respiratory Rate 16 16 Blood Pressure 166/67 H 156/60 H Pulse Oximetry 96 95 Oxygen Delivery Method Room Air Oxygen Flow Rate 0 Narrative Exam Narrative: GEN: no acute distress, elderly woman HEENT: moist mucous membranes, PERRL NECK: trachea midline, no JVD CV: regular rate and rhythm, no murmurs PULM: clear bilaterally ABD: soft, nontender, nondistended, no organomegaly EXT: warm and well perfused with no edema NEURO: awake, alert, oriented, no focal deficits Objective Labs 06/06/23 05:45 06/06/23 05:45 Labs: Laboratory Results - last 24 hr 06/05/23 06/06/23 17:05 05:45 WBC 8.4 RBC 3.53 L Hgb 11.2 L Hct 33.4 L MCV 94.7 MCH 31.8 MCHC 33.6 RDW 13.9 Plt Count 243 Neut % (Auto) 43.6 L Lymph % (Auto) 40.0 [place] % (Auto) 10.0 Eos % (Auto) 5.3 H Baso % (Auto) 1.1 Neut # (Auto) 3700 Lymph # (Auto) 3400 [place] # (Auto) 800 Eos # (Auto) 400 Baso # (Auto) 100 Sodium 138 Potassium 3.5 Chloride 105 Carbon Dioxide 28 BUN 10 Creatinine 0.51 L Estimated GFR > 60 BUN/Creatinine Ratio 19.6 Glucose 86 Calcium 8.9 Magnesium 1.9 Total Bilirubin 0.5 AST 27 ALT 15 Alkaline Phosphatase 53 Troponin I < 0.012 NT-Pro-B Natriuret Pep 2110 H 2630 H Total Protein 6.9 Albumin 3.7 Globulin 3.2 Albumin/Globulin Ratio 1.2 TSH 0.64 PFSH Medical History UTI (urinary tract infection) Chronic prescription opiate use History of recurrent UTI (urinary tract infection) History of recurrent UTI (urinary tract infection) Encounter for initial annual wellness visit (AWV) in Medicare patient Urge incontinence Lower urinary tract symptoms (LUTS) [place]-Walker grade 3 cystocele Postmenopausal atrophic vaginitis Gait instability Polymyalgia rheumatica (~1989) Sleep apnea (~2018) Migraines (~1969) Shoulder pain (~1994) Fracture (~2017) Partial blindness (~2005) Vaginal prolapse History of urinary incontinence (~2014) Fecal incontinence (~2019) GERD (gastroesophageal reflux disease) Osteoporosis (~2017) Fibromyalgia (~1994) Hypothyroidism Benign essential HTN Paroxysmal atrial fibrillation (~2015) Asthma (~2004) Surgical History Anesthesia History of cataract removal with insertion of prosthetic lens (~2005) History of hysterectomy (~1989) Family History Father History of heart disease Hyperlipidemia Mother History of heart disease Hypertension Stroke Brother History of heart disease Hypertension Sister History of heart disease Social History household members: significant other Smoking Status: Never smoker Discharge Plan Discharge Plan Patient Disposition: Home Provider Discharge Comment: All of your blood tests and scans did not find a cause for your near passing out. Your heart echo showed good function, but tricuspid regurgitation causing pulmonary hypertension. This can mostly cause exertional shortness of breath. Please discuss this with your PCP as well as your blood pressure which was quite high in the hospital. Dr. Duarte Discharge orders & Medications Prescriptions: Continued brimonidine-timolol [Combigan] 0.2-0.5 % drops 1 drp EYE-BOTH BID gabapentin 300 mg capsule 300 mg PO DAILY omeprazole 20 mg capsule,delayed release(DR/EC) 20 mg PO DAILY Qty: 90 3RF alendronate 70 mg tablet 70 mg PO QWEEK Qty: 12 1RF polyethylene glycol 3350 [Miralax] 17 gram/dose powder 17 g PO BID PRN (Reason: constip) Qty: 3060 1RF Eliquis 5 mg tablet 5 mg PO BID Qty: 60 11RF simvastatin 20 mg tablet 20 mg PO DAILY Qty: 90 3RF fluticasone propionate [Flovent HFA] 110 mcg/actuation HFA aerosol inhaler 1 puff inhalation BID PRN (Reason: JUANITA) Qty: 36 3RF albuterol sulfate 2.5 mg /3 mL (0.083 %) solution for nebulization 2.5 mg inhalation Q6H PRN (Reason: wheezing) Qty: 75 11RF (DME) Disabled parking permit See Rx Instructions .ROUTE .MEDSUPPLY Qty: 1 0RF Rx Instructions: I find this patient to be medically disabled and qualified for disabled parking as indicated, and signed, on the accompanying disabled parking application for individuals. hyoscyamine sulfate 0.125 mg tablet, sublingual 0.25 mg sublingual BID naloxone [Narcan] 4 mg/actuation spray,non-aerosol 1 spray intranasal NOW oxybutynin chloride 5 mg tablet extended release 24hr 5 mg PO DAILY levothyroxine [Synthroid] 88 mcg tablet 88 mcg PO DAILY hydrocodone-acetaminophen 5-325 mg tablet 1 tab PO Q8H PRN (Reason: cough) estradiol [Estrace] 0.01 % (0.1 mg/gram) cream 1 g vaginal 2XW Qty: 42.5 3RF cefdinir 300 mg capsule 300 mg PO BID Qty: 70 0RF Rx Instructions: Take 1 tablet twice daily for 5 days then 1 tablet at bedtime times 60 days Follow up/Referrals: Wilmar Connor DO [Primary Care Provider] - 06/12/23 1:00 pm (Appt:06/12 1:00 @ carly poole please arrive 15 min prior to scheduled appointment time ) Visit Report/Discharge Packet Instructions: DI for Prescription Opioid Use Stand Alone Forms: Congestive Heart Failure, Patient Portal/API, Stroke Signs & Symptoms Discharge Data Primary Care Provider: Wilmar Connor Attending Provider: Jimenez Duarte Admit Date/Time: 06/05/23 18:07
[2023-06-06] MEDS: ACETAMINOPHEN 325 MG TABLET 650 MG PO (15:48)
--- NOTE | 2023-06-06 16:15 | PC.NURSE ---
Pt D/C'd, afebrile, A&Ox4, pt and significant other verbalized understanding and when to return to the ED if needed for syncope, chest pain, and/or s/s of a stroke. All questions answered at the time of D/C. Pt wheeled out to the car via wheelchair, pt was able to self transfer from the w/c into the car. Pt went home with her cellphone, clothing, shoes, dentures, jewelry, and her cane.
[2023-06-06 17:02] LABS: Appearance Urine UA CLEAR; Bilirubin Urine UA NEGATIVE (NEGATIVE); Color Urine UA YELLOW; Glucose Urine UA NEGATIVE (Negative); Ketones Urine UA NEGATIVE (NEGATIVE); Leukocyte Esterase Urine UA NEGATIVE (NEGATIVE); Nitrite Urine UA NEGATIVE (Negative); Occult Blood Urine UA NEGATIVE (Negative); Protein Urine UA NEGATIVE (Negative); Urobilinogen Urine UA 0.2 E.U./dL (0.2)
[2023-06-06 17:18] LABS: Bacteria Urine None Seen; Culture Indicated Urine Cult Not Indicated; RBC Urine 0-1/HPF (0-5/HPF); Squamous Epithelial Cell Urine 1-5 /HPF (0-5/HPF); WBC Urine 0-1/HPF (0-5/HPF)
== END 2023-06-06 16:07 | disposition home or self-care (01) ==
LOC: ED 18:07 → AC 18:08
PROVIDERS: Internal Medicine; Admitting Provider Student in an Organized Health Care Education/Training Program; Emergency Provider Emergency Medicine; Family Provider Family Medicine; PCP Family Medicine; Referring Provider Emergency Medicine; Visit Provider Student in an Organized Health Care Education/Training Program
DX: R55 Syncope and collapse (principal); I48.0 Paroxysmal atrial fibrillation; G47.33 Obstructive sleep apnea (adult) (pediatric); K21.9 Gastro-esophageal reflux disease without esophagitis; E03.9 Hypothyroidism, unspecified; M35.3 Polymyalgia rheumatica; M79.7 Fibromyalgia; G89.29 Other chronic pain; M62.838 Other muscle spasm; N39.0 Urinary tract infection, site not specified; Z79.01 Long term (current) use of anticoagulants
CPT/HCPCS: 36415; 70450; 71045; 80053; 81001; 81003; 82550; 83690; 83735; 83880; 84443; 84484; 85025; 85610; 85730; 93005; 93010; 96360; 96361; 99284; G0378; C8929; Q9957